=== PATIENT | female | born 2000 | race Caucasian/White ===

== ENCOUNTER 2020-03-08 12:13 | Emergency (ER) | payer OTHER ==
[~2020-03-08] VITALS: Ht 162.6 cm; Wt 88.0 kg
[2020-03-08 12:21] VITALS: BP_SYST 122
[2020-03-08] MEDS ORDERED: BACITRACIN 1 GM OINT TP ONE (12:30)
[2020-03-08] MEDS ORDERED: DIPH-TET-PERTUS Vaccine 0.5 ML VIAL (ADACEL) I.M. ONE (12:30)
[2020-03-08 12:46] VITALS: BP_SYST 122
== END 2020-03-08 12:46 | disposition home or self-care (01) ==
LOC: SED 12:13
DX: S71.132A Puncture wound without foreign body, left thigh, initial encounter (principal); W54.0XXA Bitten by dog, initial encounter; Y93.89 Activity, other specified; Y92.89 Other specified places as the place of occurrence of the external cause; Y99.8 Other external cause status
CPT/HCPCS: 90715; 99283

== ENCOUNTER 2020-07-21 14:02 | Emergency (ER) | payer OTHER ==
[~2020-07-21] VITALS: Ht 162.6 cm; Wt 88.9 kg
[2020-07-21 14:55] VITALS: BP_SYST 136
[2020-07-21 15:05] VITALS: BP_SYST 136
[2020-07-21] MEDS ORDERED: DEXTROSE 50% JECT 50 ML DISP.SYRIN ONE (23:56)
== END 2020-07-21 15:05 | disposition home or self-care (01) ==
LOC: SED 14:02
DX: J02.9 Acute pharyngitis, unspecified (principal)
CPT/HCPCS: 99283

== ENCOUNTER 2020-10-17 00:36 | Emergency (ER) | payer OTHER ==
[~2020-10-17] VITALS: Ht 160 cm; Wt 86.2 kg
[2020-10-17] MEDS ORDERED: BACITRACIN 1 GM OINT TP ONE ×3 (00:37→03:24)
[2020-10-17 00:45] VITALS: BP_SYST 130
[2020-10-17] MEDS ORDERED: DIPH-TET-PERTUS Vaccine 0.5 ML VIAL (ADACEL) I.M. ONE (01:15)
[2020-10-17] MEDS ORDERED: LIDOCAINE 1% 10 MG/ML, 20 ML MDV INJ ONE (01:15)
[2020-10-17] MEDS ORDERED: LIDOCAINE 1%, 20 ML MDV 20 ML ONE (01:15)
[2020-10-17] MEDS ORDERED: AMOX-423 PO (02:56)
[2020-10-17 03:29] VITALS: BP_SYST 138
== END 2020-10-17 03:29 | disposition home or self-care (01) ==
LOC: SED 00:36
DX: S01.21XA Laceration without foreign body of nose, initial encounter (principal); W01.198A Fall on same level from slipping, tripping and stumbling with subsequent striking against other object, initial encounter; Y93.89 Activity, other specified; Y92.89 Other specified places as the place of occurrence of the external cause; Y99.8 Other external cause status
CPT/HCPCS: 12013; 90471; 90715; 99283; J2001

== ENCOUNTER 2020-10-25 18:06 | Emergency (ER) | payer OTHER ==
[~2020-10-25] VITALS: Ht 162.6 cm; Wt 86.2 kg
[~2020-10-25 18:06] MED LIST: AMOX-423 PO
[2020-10-25 18:16] VITALS: BP_SYST 129
[2020-10-25] MEDS ORDERED: BACITRACIN 1 GM OINT TP ONE (18:28)
[2020-10-25 18:33] VITALS: BP_SYST 129
== END 2020-10-25 18:30 | disposition home or self-care (01) ==
LOC: SED 18:06
DX: S01.21XD Laceration without foreign body of nose, subsequent encounter (principal); X58.XXXD Exposure to other specified factors, subsequent encounter
CPT/HCPCS: 99281

== ENCOUNTER 2021-07-23 23:39 | Emergency (ER) | payer OTHER ==
[~2021-07-23] VITALS: Ht 160 cm; Wt 90.7 kg
[2021-07-23 23:45] VITALS: BP_SYST 147
--- NOTE | 2021-07-24 00:30 | NUR ---
call pt name in the WR.No answer.
--- NOTE | 2021-07-24 00:35 | NUR ---
call pt name in the WR.No answer.
--- NOTE | 2021-07-24 00:40 | NUR ---
call pt name in the WR.No answer.
== END 2021-07-24 00:40 | disposition left against medical advice (07) ==
LOC: SED 23:39
DX: H92.02 Otalgia, left ear (principal); Z53.21 Procedure and treatment not carried out due to patient leaving prior to being seen by health care provider

== ENCOUNTER 2023-08-12 20:53 | Emergency (ER) | payer MEDICAID, OTHER ==
[~2023-08-12] VITALS: Ht 160 cm; Wt 95.3 kg
[2023-08-12 21:36] VITALS: BP_SYST 132; PULSE 101; RESP 16; TEMP 98.3; O2SAT 99
[2023-08-12] MEDS ORDERED: cefTRIAXone 1 GM in LIDOCAINE 1%, 20 ML MDV 2.1 ML IM ONE (22:15)
[2023-08-12] MEDS ORDERED: DIPHTH,PERTUSS(ACELL),TET VAC 0.5 ML VIAL (Tdap) I.M. ONE (22:15)
[2023-08-12] MEDS ORDERED: BACITRACIN 1 GM OINT TP ONE (22:53)
[2023-08-12] MEDS ORDERED: AUG875 PO (22:54)
[2023-08-12 22:59] VITALS: BP_SYST 132; PULSE 82; RESP 16; TEMP 97.6; O2SAT 99
== END 2023-08-12 22:59 | disposition home or self-care (01) ==
LOC: SED 20:53
DX: S61.212A Laceration without foreign body of right middle finger without damage to nail, initial encounter (principal); S61.224A Laceration with foreign body of right ring finger without damage to nail, initial encounter; Z79.899 Other long term (current) drug therapy; W54.0XXA Bitten by dog, initial encounter; Y93.89 Activity, other specified; Y92.89 Other specified places as the place of occurrence of the external cause; Y99.8 Other external cause status
CPT/HCPCS: 99284; 90715; 96372; 90471; J0696; J2001

== ENCOUNTER 2023-11-06 21:49 | Emergency (ER) | payer SELFPAY ==
[~2023-11-06] VITALS: Ht 162.6 cm; Wt 95.3 kg
[~2023-11-06 21:49] MED LIST changes: +AUG875 PO
[2023-11-06 21:53] VITALS: BP_SYST 132; PULSE 105; RESP 16; TEMP 98.9; O2SAT 97
[2023-11-06] MEDS ORDERED: PIPERACILLIN/TAZOBACTAM 3.375 GM/VIAL (ZOSYN) IV ONE (22:27)
[2023-11-06] MEDS: PIPERACILLIN/TAZO 3.375 GM in NS 50 ML IV ONE (22:38)
[2023-11-06] MEDS: NACL 0.9% 1,000 ML IV ONE (22:38)
[2023-11-06] MEDS: MORPHINE 4 MG INJ. 4 MG/ML VIAL IVP ONE (22:42)
[2023-11-06 22:46] LABS: EOSINOPHILS # (AUTO) 0.1 K/uL (0.0-0.4)
[2023-11-06 22:51] LABS: BASOPHILS % (AUTO) 0.3 % (0.0-2.0); EOSINOPHILS % (AUTO) 0.8 % (0.0-4.0); HEMATOCRIT 40.5 % (36-48); LYMPHOCYTES # (AUTO) 2.9 K/uL (1.0-5.5); LYMPHOCYTES % (AUTO) 26.5 % (20.5-51.5); MEAN CORPUSCULAR HEMOGLOBIN 29 pg (27-31); MEAN CORPUSCULAR HGB CONC 35 % (32-36); MEAN CORPUSCULAR VOLUME 84 fL (79.0-98.0); MONOCYTES # (AUTO) 0.5 K/uL (0.0-1.0); MONOCYTES % (AUTO) 4.9 % (1.7-9.3); NEUTROPHILS # (AUTO) 7.3 K/uL (1.8-7.7); NEUTROPHILS % (AUTO) 67.5 % (40.0-70.0); PLATELET COUNT (AUTO) 342 K/uL (130-430); RED BLOOD CELL COUNT(AUTO) 4.84 MIL/uL (4.2-6.2); RED CELL DISTRIBUTION WIDTH 13.7 % (9.0-15.0); WHITE BLOOD COUNT (AUTO) 10.8 K/uL (4.8-10.8)
[2023-11-06 22:56] LABS: CALCIUM 8.6 mg/dL (8.4-11.0); CREATININE 0.89 mg/dL (0.55-1.30); POTASSIUM 3.7 mmol/L (3.5-5.1)
[2023-11-06] MEDS ORDERED: PENI500T PO (22:56)
[2023-11-06 23:00] LABS: ALBUMIN 3.8 g/dL (3.4-4.8); BILIRUBIN,DIRECT 0.1 mg/dL (0.0-0.3); TOTAL BILIRUBIN 0.4 mg/dL (0.0-1.0)
[2023-11-06 23:30] VITALS: BP_SYST 119; PULSE 87; RESP 16; TEMP 98.6; O2SAT 95
== END 2023-11-06 23:30 | disposition home or self-care (01) ==
LOC: SED 21:49
DX: K12.2 Cellulitis and abscess of mouth (principal)
CPT/HCPCS: 99284; 96365; 96375; 80076; 80048; 85025; 87040; 36415; 93005; 83605; J2543; J2270